=== PATIENT | female | born 1990 | race Caucasian/White ===

== ENCOUNTER 2016-07-24 16:38 | Emergency (ER) | payer SELFPAY ==
[~2016-07-24] VITALS: Wt 62.0 kg
[2016-07-24] MEDS ORDERED: KETOROLAC 30 MG INJ IM STA (17:32)
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
[2016-07-24] MEDS ORDERED: IBUP-1542 PO (19:03)
[2016-07-24] MEDS ORDERED: CYCL-319 PO (19:03)
== END 2016-07-24 19:09 | disposition home or self-care (01) ==
LOC: FTE 16:38
DX: S10.93XA Contusion of unspecified part of neck, initial encounter (principal); M62.838 Other muscle spasm; F17.210 Nicotine dependence, cigarettes, uncomplicated; S20.222A Contusion of left back wall of thorax, initial encounter; S20.221A Contusion of right back wall of thorax, initial encounter; V49.49XA Driver injured in collision with other motor vehicles in traffic accident, initial encounter
CPT/HCPCS: 72040; J1885; 96372